=== PATIENT | male | born 1985 | race American Indian/Alaskan Native ===

== ENCOUNTER 2017-02-23 03:29 | Emergency (ER) | payer SELFPAY ==
[2017-02-23 04:24] LABS: Basophils % (Auto) 1.2 % (0.0-1.8); Eosinophils % (Auto) 1.4 % (0.0-4.3); Hematocrit 43.4 % (35.5-45.6); Hemoglobin 14.6 gm/dl (11.8-15.2); Mean Corpuscular HGB Conc 34 % (32-34); Mean Corpuscular Hemoglobin 29 pg (28-32); Mean Corpuscular Volume 87 fl (84-94); Platelet Count 184 K/mm3 (140-440); Red Blood Count 4.98 M/mm3 (3.65-5.03); Red Cell Distribution Width 14.2 % (13.2-15.2); White Blood Count 10.6 K/mm3 (4.5-11.0)
[2017-02-23 04:38] LABS: BUN/Creatinine Ratio 13.33; Blood Urea Nitrogen 12 mg/dL (9-20); Calcium 9.1 mg/dL (8.4-10.2); Carbon Dioxide 21 mmol/L (22-30); Glucose 99 mg/dL (75-100)
[2017-02-23 04:39] LABS: Anion Gap 19 mmol/L; Potassium 3.6 mmol/L (3.6-5.0); Sodium 134 mmol/L (137-145)
--- NOTE | 2017-02-23 07:21 | XRay Report ---
Chest 2 views: History: Extra axial. Findings: Normal cardiomediastinal silhouette. Trachea is midline. No consolidation, pneumothorax or pleural effusion. Impression: No acute cardiopulmonary findings.
--- NOTE | 2017-02-23 12:56 | Emergency Department Report ---
ED General Adult HPI - General Chief complaint: Rectal Pain Stated complaint: COLD SWEATS & PAINFUL BOWEL MOVEMENTS Time Seen by Provider: 02/23/17 11:06 Source: patient Mode of arrival: Ambulatory Limitations: No Limitations - History of Present Illness Initial comments: This is a 31-year-old male nontoxic, well nourished in appearance, no acute signs of distress presents to the ED complaining of constipation and rectal pain chronic. Patient stated every time he uses the restroom a hemorrhoid is seen that he reduces himself. Patient stated he had a normal bowel movement 2 hours ago. Patient stated he was last diagnosed with hemorrhoids which symptoms are not resolved. Patient describes symptoms as intermittently. Patient also states that he gets night sweats at night that is intermittent. Patient denies any fever, chest pain, shortness of breath, rectal hemorrhage, numbness, tingling, abdominal pain, stiff neck, headache, numbness, tingling. Patient denies any allergies. Denies any past medical history. MD Complaint: hemorrhoids -: Gradual, year(s) Radiation: non-radiation Severity scale (0 -10): 5 Quality: aching Consistency: intermittent Improves with: none Worsens with: none Associated Symptoms: denies other symptoms. denies: confusion, chest pain, cough, diaphoresis, fever/chills, headaches, loss of appetite, malaise, nausea/ vomiting, rash, seizure, shortness of breath, syncope, weakness Treatments Prior to Arrival: none - Related Data Previous Rx's Medication Instructions Recorded Last Taken Type Sulfamethoxazole/Trimethoprim 1 each PO BID #14 tablet 10/14/14 Unknown Rx [Bactrim Ds] Polyethylene Glycol 3350 [Miralax 17 gm PO QDAY 30 Days 02/23/17 Unknown Rx 3350] Pramoxine HCl [Pramoxine 1%] 1 applicatio TP 5XD PRN #1 foam 02/23/17 Unknown Rx Allergies Allergy/AdvReac Type Severity Reaction Status Date / Time No Known Allergies Allergy Verified 10/17/14 13:53 ED Review of Systems ROS: Stated complaint: COLD SWEATS & PAINFUL BOWEL MOVEMENTS Other details as noted in HPI Constitutional: denies: chills, fever Eyes: denies: eye pain, eye discharge, vision change ENT: denies: ear pain, throat pain Respiratory: denies: cough, shortness of breath, wheezing Cardiovascular: denies: chest pain, palpitations Endocrine: no symptoms reported Gastrointestinal: denies: abdominal pain, nausea, diarrhea Genitourinary: denies: urgency, dysuria Musculoskeletal: denies: back pain, joint swelling, arthralgia Skin: denies: rash, lesions Neurological: denies: headache, weakness, paresthesias Psychiatric: denies: anxiety, depression Hematological/Lymphatic: denies: easy bleeding, easy bruising ED Past Medical Hx - Past Medical History Previous Medical History?: Yes Additional medical history: drug addiction - in treatment - Surgical History Past Surgical History?: No - Social History Smoking Status: Current Every Day Smoker Substance Use Type: None - Medications Home Medications: Home Medications Medication Instructions Recorded Confirmed Last Taken Type Sulfamethoxazole/Trimethoprim 1 each PO BID #14 tablet 10/14/14 Unknown Rx [Bactrim Ds] Polyethylene Glycol 3350 [Miralax 17 gm PO QDAY 30 Days 02/23/17 Unknown Rx 3350] Pramoxine HCl [Pramoxine 1%] 1 applicatio TP 5XD PRN #1 foam 02/23/17 Unknown Rx ED Physical Exam - General Limitations: No Limitations General appearance: alert, in no apparent distress - Head Head exam: Present: atraumatic, normocephalic, normal inspection (the) - Eye Eye exam: Present: normal appearance, PERRL, EOMI. Absent: scleral icterus, conjunctival injection, nystagmus, periorbital swelling, periorbital tenderness Pupils: Present: normal accommodation - ENT ENT exam: Present: normal exam, normal orophraynx, mucous membranes moist, TM's normal bilaterally, normal external ear exam - Neck Neck exam: Present: normal inspection, full ROM. Absent: tenderness, meningismus, lymphadenopathy, thyromegaly - Respiratory Respiratory exam: Present: normal lung sounds bilaterally. Absent: respiratory distress, wheezes, rales, rhonchi, stridor, chest wall tenderness, accessory muscle use, decreased breath sounds, prolonged expiratory - Cardiovascular Cardiovascular Exam: Present: regular rate, normal rhythm, normal heart sounds. Absent: bradycardia, tachycardia, irregular rhythm, systolic murmur, diastolic murmur, rubs, gallop - GI/Abdominal GI/Abdominal exam: Present: soft, normal bowel sounds. Absent: distended, tenderness, guarding, rebound, rigid, diminished bowel sounds - Rectal Rectal exam: Present: deferred, normal inspection, heme (-) stool, hemorrhoids ( reducible). Absent: heme (+) stool, bloody stool - Extremities Exam Extremities exam: Present: normal inspection, full ROM, normal capillary refill. Absent: tenderness, pedal edema, joint swelling, calf tenderness - Back Exam Back exam: Present: normal inspection, full ROM. Absent: tenderness, CVA tenderness (R), CVA tenderness (L), muscle spasm, paraspinal tenderness, vertebral tenderness, rash noted - Neurological Exam Neurological exam: Present: alert, oriented X3, CN II-XII intact, normal gait, reflexes normal - Psychiatric Psychiatric exam: Present: normal affect, normal mood - Skin Skin exam: Present: warm, dry, intact, normal color. Absent: rash ED Course Vital Signs 02/23/17 02/23/17 03:35 03:36 Temperature 98.3 F 98.3 F Pulse Rate 75 71 Respiratory 20 20 Rate Blood Pressure 115/83 115/83 O2 Sat by Pulse 98 98 Oximetry - Reevaluation(s) Reevaluation #1: 02/23/17 13:08 Patient speaking in full sentences with no signs of distress. Reevaluation #2: 02/23/17 13:08 Patient was educated about sitz bath and how to perform. ED Medical Decision Making - Lab Data Result diagrams: 02/23/17 03:51 02/23/17 03:51 Critical care attestation.: If time is entered above; I have spent that time in minutes in the direct care of this critically ill patient, excluding procedure time. ED Disposition Clinical Impression: Hemorrhoids Qualifiers: Hemorrhoid type: unspecified Qualified Code(s): K64.9 - Unspecified hemorrhoids Disposition: DC-01 TO HOME OR SELFCARE Is pt being admited?: No Does the pt Need Aspirin: No Condition: Stable Instructions: Hemorrhoids (ED), Sitz Bath (GEN), Pramoxine (Rectal) Additional Instructions: Follow-up with a primary care doctor in 3-5 days or if symptoms worsen and continue return to emergency room as soon as possible possible. Increase her dietary fiber as instructed. Performed sitz bath as directed Prescriptions: Polyethylene Glycol 3350 [Miralax 3350] 17 gm PO QDAY 30 Days Pramoxine HCl [Pramoxine 1%] 1 applicatio TP 5XD PRN #1 foam PRN Reason: Pain Referrals: PRIMARY CAREMD [Primary Care Provider] - 3-5 Days JACI HEWITT MD [Staff Physician] - 3-5 Days [facility] [Outside] - 3-5 Days [facility] [Outside] - 3-5 Days Forms: Work/School Release Form(ED)
[2017-02-23 13:05] VITALS: BP 109/67
== END 2017-02-23 13:06 | disposition home or self-care (01) ==
LOC: ED 03:29
DX: K64.9 Unspecified hemorrhoids (principal); F17.210 Nicotine dependence, cigarettes, uncomplicated
CPT/HCPCS: 36415; 71020; 80048; 85025; 99283

== ENCOUNTER 2019-07-10 23:40 | Emergency (ER) | payer SELFPAY ==
[2019-07-10 23:51] VITALS: BP 109/59
--- NOTE | 2019-07-11 02:14 | Emergency Department Report ---
- General Chief complaint: Skin/Abscess/Foreign Body Stated complaint: RT SIDE FACIAL/EAR SWELLING Time Seen by Provider: 07/11/19 01:32 Source: patient Mode of arrival: Ambulatory Limitations: No Limitations - History of Present Illness Initial comments: Patient is a 34-year-old male who presents emergency room with complaints of swelling around the right ear that began last night. He states he also has pain around the right ear. He denies any fever, ear drainage, nausea, vomiting, diarrhea, chills, hearing disturbance, any other symptoms. He denies ever having this in the past. He denies any past medical history. He denies any allergies to medications. - Related Data Previous Rx's Medication Instructions Recorded Last Taken Type Sulfamethoxazole/Trimethoprim 1 each PO BID #14 tablet 10/14/14 Unknown Rx [Bactrim Ds] Polyethylene Glycol 3350 [Miralax 17 gm PO QDAY 30 Days packet 02/23/17 Unknown Rx 3350] Pramoxine HCl [Pramoxine 1%] 1 applicatio TP 5XD PRN #1 foam 02/23/17 Unknown Rx Bacitracin Zinc Oint [Antibiotic 1 applicatio TP TID #1 oint...g. 07/11/19 Unknown Rx Oint] Ibuprofen [Motrin 600 MG tab] 600 mg PO Q8H PRN #14 tablet 07/11/19 Unknown Rx Sulfamethoxazole/Trimethoprim 1 each PO BID 7 Days #14 tablet 07/11/19 Unknown Rx [Bactrim DS TAB] Allergies Allergy/AdvReac Type Severity Reaction Status Date / Time No Known Allergies Allergy Verified 10/17/14 13:53 Abscess Boil HPI - HPI Chief Complaint: Skin/Abscess/Foreign Body Stated Complaint: RT SIDE FACIAL/EAR SWELLING Time Seen by Provider: 07/11/19 01:32 Home Medications: Previous Rx's Medication Instructions Recorded Last Taken Type Sulfamethoxazole/Trimethoprim 1 each PO BID #14 tablet 10/14/14 Unknown Rx [Bactrim Ds] Polyethylene Glycol 3350 [Miralax 17 gm PO QDAY 30 Days packet 02/23/17 Unknown Rx 3350] Pramoxine HCl [Pramoxine 1%] 1 applicatio TP 5XD PRN #1 foam 02/23/17 Unknown Rx Bacitracin Zinc Oint [Antibiotic 1 applicatio TP TID #1 oint...g. 07/11/19 Unknown Rx Oint] Ibuprofen [Motrin 600 MG tab] 600 mg PO Q8H PRN #14 tablet 07/11/19 Unknown Rx Sulfamethoxazole/Trimethoprim 1 each PO BID 7 Days #14 tablet 07/11/19 Unknown Rx [Bactrim DS TAB] Allergies/Adverse Reactions: Allergies Allergy/AdvReac Type Severity Reaction Status Date / Time No Known Allergies Allergy Verified 10/17/14 13:53 ED Review of Systems ROS: Stated complaint: RT SIDE FACIAL/EAR SWELLING Other details as noted in HPI Comment: All other systems reviewed and negative ED Past Medical Hx - Past Medical History Previous Medical History?: No Additional medical history: drug addiction - in treatment - Surgical History Past Surgical History?: No - Social History Smoking Status: Current Every Day Smoker Substance Use Type: Alcohol, Marijuana - Medications Home Medications: Home Medications Medication Instructions Recorded Confirmed Last Taken Type Sulfamethoxazole/Trimethoprim 1 each PO BID #14 tablet 10/14/14 Unknown Rx [Bactrim Ds] Polyethylene Glycol 3350 [Miralax 17 gm PO QDAY 30 Days packet 02/23/17 Unknown Rx 3350] Pramoxine HCl [Pramoxine 1%] 1 applicatio TP 5XD PRN #1 foam 02/23/17 Unknown Rx Bacitracin Zinc Oint [Antibiotic 1 applicatio TP TID #1 oint...g. 07/11/19 Unknown Rx Oint] Ibuprofen [Motrin 600 MG tab] 600 mg PO Q8H PRN #14 tablet 07/11/19 Unknown Rx Sulfamethoxazole/Trimethoprim 1 each PO BID 7 Days #14 tablet 07/11/19 Unknown Rx [Bactrim DS TAB] ED Physical Exam - General Limitations: No Limitations General appearance: alert, in no apparent distress - Head Head exam: Present: atraumatic, normocephalic - Eye Eye exam: Present: normal appearance - ENT ENT exam: Present: normal orophraynx, mucous membranes moist, TM's normal bilaterally, other (area of edema and induration present just inferior of the ear lobe and to the right ear lobe, there are multiple closed comedomes, there is erythema and increased warmth, no central fluctuance, no necrosis, ear canals and TMs are normal, no TTP to the mastoid process bilaterally) - Neck Neck exam: Absent: lymphadenopathy - Respiratory Respiratory exam: Present: normal lung sounds bilaterally. Absent: respiratory distress, wheezes, rales, rhonchi, stridor, chest wall tenderness, accessory muscle use, decreased breath sounds, prolonged expiratory - Cardiovascular Cardiovascular Exam: Present: regular rate, normal rhythm, normal heart sounds. Absent: systolic murmur, diastolic murmur, rubs, gallop - Neurological Exam Neurological exam: Present: alert, oriented X3 - Psychiatric Psychiatric exam: Present: normal affect, normal mood - Skin Skin exam: Present: warm, dry, intact ED Course Vital Signs 07/10/19 23:48 Temperature 98.5 F Pulse Rate 98 H Respiratory 20 Rate Blood Pressure 109/59 O2 Sat by Pulse 96 Oximetry ED Medical Decision Making - Medical Decision Making Patient is a 34-year-old male who presents emergency room with complaints of swelling around the right ear that began last night. He states he also has pain around the right ear. He denies any fever, ear drainage, nausea, vomiting, diarrhea, chills, hearing disturbance, any other symptoms. He denies ever having this in the past. He denies any past medical history. He denies any allergies to medications. vitals are normal. on exam: area of edema and induration present just inferior of the ear lobe and to the right ear lobe, there are multiple closed comedomes, there is erythema and increased warmth, no central fluctuance, no necrosis, ear canals and TMs are normal, no TTP to the mastoid process bilaterally. examination consistent with comedomes and cellulitis. no drainable abscess at this time. given prescription for bacitracin, bactrim, and ibuprofen. advised pt to please use medication as prescribed. Please clean area with alcohol or peroxide 3 times a day. Follow- up with a primary care doctor in the next 3 days to have the area reexamined. Return to the emergency room for any new or worsening symptoms despite antibiotic therapy including but not limited to increasing swelling, increasing redness, increasing pain, fever, chills, vomiting, etc. - Differential Diagnosis cellulitis, abscess, folliculitis, comedomes, mastoiditis, sialoadenitis Critical care attestation.: If time is entered above; I have spent that time in minutes in the direct care of this critically ill patient, excluding procedure time. ED Disposition Clinical Impression: Closed comedone Cellulitis Qualifiers: Site of cellulitis: face Qualified Code(s): L03.211 - Cellulitis of face Disposition: DC- TO HOME OR SELFCARE Is pt being admited?: No Does the pt Need Aspirin: No Condition: Stable Instructions: Cellulitis (ED), Acne (ED) Additional Instructions: Please use medication as prescribed. Please clean area with alcohol or peroxide 3 times a day. Follow-up with a primary care doctor in the next 3 days to have the area reexamined. Return to the emergency room for any new or worsening symptoms despite antibiotic therapy including but not limited to increasing swelling, increasing redness, increasing pain, fever, chills, vomiting, etc. Prescriptions: Bacitracin Zinc Oint [Antibiotic Oint] 1 applicatio TP TID #1 oint...g. Sulfamethoxazole/Trimethoprim [Bactrim DS TAB] 1 each PO BID 7 Days #14 tablet Ibuprofen [Motrin 600 MG tab] 600 mg PO Q8H PRN #14 tablet PRN Reason: Pain Referrals: RICKY MARIE MD [Staff Physician] - 2-3 Days [facility] [Outside] - 2-3 Days [facility] [Outside] - 2-3 Days Time of Disposition: 02:13 Print Language: FRISIAN
== END 2019-07-11 02:20 | disposition home or self-care (01) ==
LOC: ED 23:40
DX: L03.211 Cellulitis of face (principal); F17.200 Nicotine dependence, unspecified, uncomplicated; F12.20 Cannabis dependence, uncomplicated; Z79.1 Long term (current) use of non-steroidal anti-inflammatories (NSAID); Z79.899 Other long term (current) drug therapy
CPT/HCPCS: 99282